=== PATIENT | male | born 1975 | race Caucasian/White ===

== ENCOUNTER 2017-06-03 17:26 | Emergency (ER) | payer OTHER ==
[~2017-06-03] VITALS: Ht 175.3 cm; Wt 118.2 kg
[~2017-06-03 17:26] MED LIST: INSLAN SQ; METF500T4 PO; SIMV20TA6 PO
[2017-06-03] MEDS ORDERED: ASPI81 PO (17:31)
[2017-06-03 17:43] LABS: GLUCOSE,POINT OF CARE 453 MG/DL (70-110)
[2017-06-03] MEDS ORDERED: KETOROLAC TROMETHAMINE 30 MG/ML VIAL IM ONE (20:00)
[2017-06-03] MEDS ORDERED: SODIUM CHLORIDE 0.9% 1,000 ML IV ONE (20:00)
[2017-06-03 20:08] VITALS: BP 121/99
== END 2017-06-03 20:21 | disposition home or self-care (01) ==
LOC: EMS 17:28
DX: S16.1XXA Strain of muscle, fascia and tendon at neck level, initial encounter (principal); E11.65 Type 2 diabetes mellitus with hyperglycemia; E78.00 Pure hypercholesterolemia, unspecified; I10 Essential (primary) hypertension; Z79.82 Long term (current) use of aspirin; Z79.4 Long term (current) use of insulin; V43.52XA Car driver injured in collision with other type car in traffic accident, initial encounter; Y93.89 Activity, other specified; Y92.412 Parkway as the place of occurrence of the external cause; Y99.8 Other external cause status
CPT/HCPCS: 70450; 72125; 82962; 96372; 99284; J1885

== ENCOUNTER 2017-08-23 07:13 | Emergency (ER) | payer OTHER ==
[~2017-08-23] VITALS: Ht 175.3 cm; Wt 118.2 kg
[~2017-08-23 07:13] MED LIST changes: +ASPI81 PO
[2017-08-23 07:22] LABS: GLUCOSE,POINT OF CARE 340 MG/DL (70-110)
[2017-08-23] MEDS ORDERED: HYDROCODONE/ACETAMINOPHEN 5-325 MG TABLET PO ONE (09:15)
[2017-08-23] MEDS ORDERED: MetFORMIN HCL 500 MG TABLET PO ONE (09:15)
[2017-08-23 09:30] VITALS: BP 146/81
== END 2017-08-23 09:35 | disposition home or self-care (01) ==
LOC: EMS 07:15
DX: L03.312 Cellulitis of back [any part except buttock and flank] (principal); E11.9 Type 2 diabetes mellitus without complications; I10 Essential (primary) hypertension; E78.00 Pure hypercholesterolemia, unspecified
CPT/HCPCS: 82962; 99283

== ENCOUNTER 2018-04-03 04:54 | Emergency (ER) | payer OTHER ==
[~2018-04-03] VITALS: Ht 175.3 cm; Wt 113.6 kg
[~2018-04-03 04:54] MED LIST changes: +METF-444 PO; -METF500T4 PO
[2018-04-03] MEDS ORDERED: HYDR-4061 PO (05:24)
[2018-04-03] MEDS ORDERED: LISI-661 PO (05:24)
[2018-04-03] MEDS ORDERED: IBUP-2070 PO (05:24)
[2018-04-03 05:55] LABS: APPEARANCE,URINE CLOUDY (CLEAR); BILIRUBIN,URINE NEGATIVE (NEGATIVE); GLUCOSE, URINE (UA) >=1000 mg/dL (NEGATIVE); KETONES,URINE NEGATIVE (NEGATIVE); LEUKOCYTE ESTERASE ,URINE NEGATIVE (NEGATIVE); NITRATE,URINE NEGATIVE (NEGATIVE); OCCULT BLOOD,URINE MODERATE (NEGATIVE); PROTEIN,URINE SEE CONFIRM (NEGATIVE)
[2018-04-03 06:05] LABS: SULFOSALICYLIC ACID,URINE 2+ (Negative)
[2018-04-03 06:08] LABS: BACTERIA,URINE None Seen /HPF (None Seen); SQUAMOUS EPITHELIAL CELL,UR Few /LPF (None Seen); WBC,URINE 0-2 /HPF (0-5); YEAST,URINE Few /HPF (None Seen)
[2018-04-03] MEDS ORDERED: BACLOFEN 10 MG TABLET PO ONE (06:45)
[2018-04-03] MEDS ORDERED: KETOROLAC TROMETHAMINE 60 MG/2 ML VIAL IM ONE (06:45)
[2018-04-03 06:49] LABS: GLUCOSE,POINT OF CARE 321 MG/DL (70-110)
[2018-04-03 06:51] LABS: BASOPHILS % (AUTO) 0.9 % (0.0-2.0); EOSINOPHILS % (AUTO) 0.5 % (1.0-6.0); HEMATOCRIT 39.3 % (41-53); LYMPHOCYTES # (AUTO) 2.2 K/uL (1.0-4.8); LYMPHOCYTES % (AUTO) 12.6 % (22.0-44.0); MEAN CORPUSCULAR HEMOGLOBIN 31.9 pg (26.0-34.0); MEAN CORPUSCULAR HGB CONC 35.7 G/dL (31.0-37.0); MEAN CORPUSCULAR VOLUME 90 fL (80-100); MONOCYTES # (AUTO) 1.6 K/uL (0.1-1.0); NEUTROPHILS # (AUTO) 13.6 K/uL (1.8-7.7); PLATELET COUNT (AUTO) 265 K/uL (150-450); RED BLOOD CELL COUNT(AUTO) 4.39 MIL/uL (4.50-5.90); RED CELL DISTRIBUTION WIDTH 11.5 % (11.5-14.5)
[2018-04-03 07:00] LABS: ANION GAP 7 mmol/L (8-16); CALCIUM, TOTAL 8.8 mg/dL (8.8-10.5); CARBON DIOXIDE 28 mmol/L (22-29); CHLORIDE 94 mmol/L (98-107); CREATININE 0.95 mg/dL (0.60-1.30); GLOMERULAR FILTR. RATE CALC > 60 mL/min (>60); GLUCOSE,RANDOM 323 mg/dL (70-110); POTASSIUM 4.4 mmol/L (3.5-5.1); SODIUM SERUM 129 mmol/L (136-145); UREA NITROGEN, BLOOD 21 mg/dL (7-18)
[2018-04-03 07:06] LABS: ALANINE AMINOTRANSFERASE 25 U/L (12-78); ALBUMIN 2.5 g/dL (3.4-5.0); ALKALINE PHOSPHATASE 107 U/L (46-116); ASPARTATE AMINOTRANSFERASE 22 U/L (15-37); BILIRUBIN,TOTAL 0.6 mg/dL (0.1-1.0)
[2018-04-03 07:09] LABS: D-DIMER 1.91 mg/L FEU (0.00-0.50); PROTHROMBIN TIME 10.5 SEC (9.4-11.6)
[2018-04-03 08:51] VITALS: BP 143/88
== END 2018-04-03 08:56 | disposition home or self-care (01) ==
LOC: EMS 04:55
DX: S86.812A Strain of other muscle(s) and tendon(s) at lower leg level, left leg, initial encounter (principal); E11.65 Type 2 diabetes mellitus with hyperglycemia; E87.1 Hypo-osmolality and hyponatremia; L03.116 Cellulitis of left lower limb; E78.00 Pure hypercholesterolemia, unspecified; I10 Essential (primary) hypertension; Z79.82 Long term (current) use of aspirin; Z79.4 Long term (current) use of insulin; Z79.899 Other long term (current) drug therapy; W19.XXXA Unspecified fall, initial encounter; Y93.89 Activity, other specified; Y92.89 Other specified places as the place of occurrence of the external cause; Y99.8 Other external cause status
CPT/HCPCS: 29530; 36415; 72170; 73552; 73590; 80053; 81001; 81002; 82962; 85025; 85379; 85610; 85730; 93971; 96372; 99285; J1885

== ENCOUNTER 2018-04-22 15:43 | Inpatient (IN) | payer OTHER ==
[~2018-04-22] VITALS: Ht 175.3 cm; Wt 126.2 kg
[~2018-04-22 15:43] MED LIST changes: +ACID1GRA PO; +INSU100V SQ; +LEVO250 PO; +LISI-661 PO; +OMEP20 PO; +VANC1.5P21 IVPB
[2018-04-22] MEDS ORDERED: SODIUM CHLORIDE 0.9% 1,000 ML IV ONE ×2 (17:04→17:15)
[2018-04-22] MEDS ORDERED: ACETAMINOPHEN 500 MG TABLET PO ONE (17:15)
[2018-04-22 17:32] LABS: BASOPHILS % (AUTO) 0.6 % (0.0-2.0); EOSINOPHILS % (AUTO) 0.4 % (1.0-6.0); HEMATOCRIT 26.9 % (41-53); HEMOGLOBIN 9.4 g/dL (13.5-17.5); LYMPHOCYTES # (AUTO) 1.2 K/uL (1.0-4.8); LYMPHOCYTES % (AUTO) 17.1 % (22.0-44.0); MEAN CORPUSCULAR HEMOGLOBIN 30.4 pg (26.0-34.0); MEAN CORPUSCULAR HGB CONC 34.9 G/dL (31.0-37.0); MEAN CORPUSCULAR VOLUME 87 fL (80-100); MONOCYTES # (AUTO) 0.5 K/uL (0.1-1.0); MONOCYTES % (AUTO) 6.7 % (2.0-9.0); NEUTROPHILS # (AUTO) 5.4 K/uL (1.8-7.7); NEUTROPHILS % (AUTO) 75.2 % (40.0-70.0); PLATELET COUNT (AUTO) 248 K/uL (150-450); RED BLOOD CELL COUNT(AUTO) 3.09 MIL/uL (4.50-5.90); RED CELL DISTRIBUTION WIDTH 12.6 % (11.5-14.5)
[2018-04-22 17:49] LABS: ALBUMIN 1.7 g/dL (3.4-5.0); BILIRUBIN,TOTAL 0.5 mg/dL (0.1-1.0); CALCIUM, TOTAL 7.5 mg/dL (8.8-10.5); CREATININE 1.56 mg/dL (0.60-1.30); POTASSIUM 3.7 mmol/L (3.5-5.1); TOTAL PROTEIN, SERUM 8.3 g/dL (6.4-8.2)
[2018-04-22] MEDS ORDERED: VANCOMYCIN HCL 1 GM/D5% WATER 200 ML IV ONE (19:30)
[2018-04-22] MEDS ORDERED: PIPERACILLIN/TAZO 3.375 GM/D5W 50 ML IV ONE (19:30)
[2018-04-22] MEDS ORDERED: 0.9% SODIUM CHLORIDE 10 ML SYRINGE IVP PRN (21:15)
[2018-04-22] MEDS ORDERED: ACETAMINOPHEN 325 MG TABLET PO PRN (21:15)
[2018-04-22] MEDS ORDERED: ONDANSETRON HCL 4 MG/2 ML VIAL IVP PRN ×2 (21:15→21:45)
[2018-04-22 21:33] LABS: GLUCOSE,POINT OF CARE 107 MG/DL (70-110)
[2018-04-22] MEDS ORDERED: MAGNESIUM HYDROXIDE SUSPENSION 30 ML UDCUP PO PRN (21:45)
[2018-04-22] MEDS ORDERED: OxyCODONE HCL/ACETAMINOPHEN 5-325 MG TABLET PO PRN (21:45)
[2018-04-22] MEDS ORDERED: ALBUTEROL SULFATE 2.5 MG/0.5 ML NEB SOLUTION NEB PRN (21:45)
[2018-04-22] MEDS ORDERED: SODIUM CHLORIDE 0.9% 1,000 ML IV SCH (22:00)
[2018-04-22] MEDS ORDERED: DEXTROSE 50%-WATER 25 GM/50 ML SYRINGE IVP PRN (22:00)
[2018-04-22 23:01] VITALS: BP 117/64
[2018-04-22] MEDS: HEPARIN SODIUM,PORCINE 5,000 UNITS/ML VIAL SQ SCH (23:50)
[2018-04-22] MEDS: ACETAMINOPHEN 325 MG TABLET PO PRN (23:50)
[2018-04-22] MEDS: SODIUM CHLORIDE 0.9% 1,000 ML IV SCH (23:50)
[2018-04-23 05:44] VITALS: BP 134/86
[2018-04-23 06:59] LABS: GLUCOMETER DEV NAME(LOC) 6N 1E; GLUCOSE,POINT OF CARE 111 MG/DL (70-110)
[2018-04-23 08:00] VITALS: BP 124/74
[2018-04-23] MEDS: HEPARIN SODIUM,PORCINE 5,000 UNITS/ML VIAL SQ SCH ×3 (08:05→23:27)
[2018-04-23] MEDS: SODIUM CHLORIDE 0.9% 1,000 ML IV SCH ×3 (08:05→23:33)
[2018-04-23] MEDS: PANTOPRAZOLE SODIUM 40 MG DR TABLET PO SCH (08:05)
[2018-04-23 10:09] LABS: CALCIUM, TOTAL 7.6 mg/dL (8.8-10.5); CREATININE 1.5 mg/dL (0.60-1.30); POTASSIUM 3.8 mmol/L (3.5-5.1)
[2018-04-23 11:25] LABS: BASOPHILS % (AUTO) 0.1 % (0.0-2.0); EOSINOPHILS % (AUTO) 1.6 % (1.0-6.0); HEMATOCRIT 29.9 % (41-53); HEMOGLOBIN 10.3 g/dL (13.5-17.5); LYMPHOCYTES # (AUTO) 0.4 K/uL (1.0-4.8); LYMPHOCYTES % (AUTO) 6.6 % (22.0-44.0); MEAN CORPUSCULAR HEMOGLOBIN 30.3 pg (26.0-34.0); MEAN CORPUSCULAR HGB CONC 34.5 G/dL (31.0-37.0); MEAN CORPUSCULAR VOLUME 88 fL (80-100); MONOCYTES # (AUTO) 0.3 K/uL (0.1-1.0); MONOCYTES % (AUTO) 5.5 % (2.0-9.0); NEUTROPHILS # (AUTO) 5.4 K/uL (1.8-7.7); PLATELET COUNT (AUTO) 225 K/uL (150-450); RED CELL DISTRIBUTION WIDTH 12.6 % (11.5-14.5)
[2018-04-23 11:27] VITALS: BP 137/80
[2018-04-23 11:28] LABS: NEUTROPHILS % (AUTO) 86.2 % (40.0-70.0)
[2018-04-23 11:49] LABS: GLUCOMETER DEV NAME(LOC) 6N 1E; GLUCOSE,POINT OF CARE 116 MG/DL (70-110)
[2018-04-23] MEDS: ACETAMINOPHEN 325 MG TABLET PO PRN ×3 (13:09→22:43)
[2018-04-23 15:37] VITALS: BP 122/79
[2018-04-23] MEDS: WATER IV SCH (16:36)
[2018-04-23] MEDS: CEFTAZIDIME PENTAHYDRATE IV SCH (16:36)
[2018-04-23] MEDS: DEXTROSE 5% IV SCH (16:36)
[2018-04-23] MEDS: MetroNIDAZOLE 500 MG/NACL 100 ML IV SCH ×2 (16:37→23:27)
[2018-04-23 18:04] LABS: GLUCOMETER DEV NAME(LOC) 6N 2D; GLUCOSE,POINT OF CARE 89 MG/DL (70-110)
[2018-04-23 19:06] LABS: APPEARANCE,URINE CLOUDY (CLEAR); BILIRUBIN,URINE NEGATIVE (NEGATIVE); GLUCOSE, URINE (UA) NEGATIVE (NEGATIVE); KETONES,URINE NEGATIVE (NEGATIVE); LEUKOCYTE ESTERASE ,URINE NEGATIVE (NEGATIVE); NITRATE,URINE NEGATIVE (NEGATIVE); OCCULT BLOOD,URINE SMALL (NEGATIVE); PROTEIN,URINE SEE CONFIRM (NEGATIVE); UROBILINOGEN,URINE 0.2 mg/dL (<=1.0)
[2018-04-23 19:28] LABS: BACTERIA,URINE None Seen /HPF (None Seen); RBC,URINE 0-2 /HPF (0-2); SQUAMOUS EPITHELIAL CELL,UR Few /LPF (None Seen); SULFOSALICYLIC ACID,URINE 1+ (Negative); WBC,URINE 0-2 /HPF (0-5)
[2018-04-23] MEDS: VANCOMYCIN HCL 1.5 GM in DEXTROSE 5%-WATER 250 ML IV SCH (19:29)
[2018-04-23 19:42] VITALS: BP 124/65
[2018-04-23] MEDS: INSULIN LISPRO 100 UNITS/ML SQ PRN (20:57)
[2018-04-23 22:14] LABS: GLUCOMETER DEV NAME(LOC) 6N 1E; GLUCOSE,POINT OF CARE 127 MG/DL (70-110)
[2018-04-23 23:25] VITALS: BP 122/42
[2018-04-24] MEDS: DEXTROSE 5% IV SCH ×3 (02:08→17:52)
[2018-04-24] MEDS: WATER IV SCH ×3 (02:08→17:52)
[2018-04-24] MEDS: CEFTAZIDIME PENTAHYDRATE IV SCH ×3 (02:08→17:52)
[2018-04-24 04:56] VITALS: BP 103/63
[2018-04-24 06:28] LABS: GLUCOMETER DEV NAME(LOC) 6N 2D; GLUCOSE,POINT OF CARE 115 MG/DL (70-110)
[2018-04-24 07:34] LABS: CALCIUM, TOTAL 7.3 mg/dL (8.8-10.5); CREATININE 1.38 mg/dL (0.60-1.30); POTASSIUM 3.6 mmol/L (3.5-5.1)
[2018-04-24 07:48] VITALS: BP 103/57
[2018-04-24] MEDS: MetroNIDAZOLE 500 MG/NACL 100 ML IV SCH ×2 (08:51→15:40)
[2018-04-24] MEDS: PANTOPRAZOLE SODIUM 40 MG DR TABLET PO SCH (08:53)
[2018-04-24] MEDS: MULTIVITAMINS WITH MINERALS, THERAPEUTIC TABLET PO SCH (08:53)
[2018-04-24] MEDS: HEPARIN SODIUM,PORCINE 5,000 UNITS/ML VIAL SQ SCH ×2 (08:53→15:40)
[2018-04-24] MEDS: VANCOMYCIN HCL 1.5 GM in DEXTROSE 5%-WATER 250 ML IV SCH ×2 (08:53→20:01)
[2018-04-24 11:54] VITALS: BP 99/65
[2018-04-24] MEDS: INSULIN LISPRO 100 UNITS/ML SQ PRN ×2 (12:22→20:12)
[2018-04-24 14:29] LABS: GLUCOMETER DEV NAME(LOC) 6N 1E; GLUCOSE,POINT OF CARE 148 MG/DL (70-110)
[2018-04-24] MEDS ORDERED: SODIUM CHLORIDE 0.9% 500 ML IV ONE (15:27)
[2018-04-24 15:30] VITALS: BP 130/73
[2018-04-24] MEDS: ACETAMINOPHEN 325 MG TABLET PO PRN (15:41)
[2018-04-24 18:54] LABS: GLUCOMETER DEV NAME(LOC) 6N 1E; GLUCOSE,POINT OF CARE 112 MG/DL (70-110)
[2018-04-24 18:54] LABS: GLUCOMETER DEV NAME(LOC) 6N 1E; GLUCOSE,POINT OF CARE 116 MG/DL (70-110)
[2018-04-24 19:37] VITALS: BP 105/68
[2018-04-24 23:39] VITALS: BP 148/74
[2018-04-25] MEDS: HEPARIN SODIUM,PORCINE 5,000 UNITS/ML VIAL SQ SCH ×4 (00:23→23:52)
[2018-04-25] MEDS: MetroNIDAZOLE 500 MG/NACL 100 ML IV SCH ×2 (00:23→10:22)
[2018-04-25] MEDS: DEXTROSE 5% IV SCH ×2 (00:24→10:21)
[2018-04-25] MEDS: CEFTAZIDIME PENTAHYDRATE IV SCH ×2 (00:24→10:21)
[2018-04-25] MEDS: WATER IV SCH ×2 (00:24→10:21)
[2018-04-25] MEDS: ACETAMINOPHEN 325 MG TABLET PO PRN ×3 (00:25→16:15)
[2018-04-25 01:58] LABS: GLUCOMETER DEV NAME(LOC) 6N 1E; GLUCOSE,POINT OF CARE 134 MG/DL (70-110)
[2018-04-25 05:40] VITALS: BP 135/65
[2018-04-25 07:31] LABS: CALCIUM, TOTAL 7.4 mg/dL (8.8-10.5); CREATININE 1.42 mg/dL (0.60-1.30); VANCOMYCIN,RANDOM 24.6 mcg/mL (25.0-50.0)
[2018-04-25 07:54] VITALS: BP 128/57
[2018-04-25 07:54] LABS: GLUCOMETER DEV NAME(LOC) 6N 1E; GLUCOSE,POINT OF CARE 105 MG/DL (70-110)
[2018-04-25] MEDS: VANCOMYCIN HCL 1.5 GM in DEXTROSE 5%-WATER 250 ML IV SCH (08:03)
[2018-04-25] MEDS: MULTIVITAMINS WITH MINERALS, THERAPEUTIC TABLET PO SCH (08:04)
[2018-04-25] MEDS: PANTOPRAZOLE SODIUM 40 MG DR TABLET PO SCH (08:04)
[2018-04-25 11:13] LABS: ABG A-A DIFF O2 316.6 mmHg (10-20.0); ABG BASE EXCESS 0.7 mmol/L (-2.0-3.0); ABG CARBOXYHEMOGLOBIN 1.4 % (0.0-1.5); ABG HCO3 25.6 mmol/L (22.0-26.0); ABG METHEMOGLOBIN 0.4 % (0.0-1.5); ABG OXYGEN CONTENT 15.6 mL/dL (15.0-23.0); ABG OXYHEMOGLOBIN 92.3 % (94.0-100.0); ABG PCO2 33 mmHg (35-45); ABG PH 7.482 (7.35-7.450); PO2, ARTERIAL BG 72.8 mmHg (88.0-96.0); SOURCE, BLOOD GAS ARTERIAL
[2018-04-25 11:14] LABS: O2 DEVICE,BLOOD GAS OXYMIZER (ROOM AIR); SITE, BLOOD GAS RT RADIAL
[2018-04-25 11:34] LABS: BASOPHILS % (AUTO) 0.3 % (0.0-2.0); HEMATOCRIT 25.7 % (41-53); HEMOGLOBIN 8.9 g/dL (13.5-17.5); LYMPHOCYTES # (AUTO) 0.6 K/uL (1.0-4.8); LYMPHOCYTES % (AUTO) 11.8 % (22.0-44.0); MEAN CORPUSCULAR HEMOGLOBIN 30.1 pg (26.0-34.0); MEAN CORPUSCULAR HGB CONC 34.7 G/dL (31.0-37.0); MEAN CORPUSCULAR VOLUME 87 fL (80-100); MONOCYTES # (AUTO) 0.4 K/uL (0.1-1.0); MONOCYTES % (AUTO) 7.2 % (2.0-9.0); NEUTROPHILS # (AUTO) 4.1 K/uL (1.8-7.7); NEUTROPHILS % (AUTO) 79.7 % (40.0-70.0); PLATELET COUNT (AUTO) 213 K/uL (150-450); RED BLOOD CELL COUNT(AUTO) 2.97 MIL/uL (4.50-5.90); RED CELL DISTRIBUTION WIDTH 12.7 % (11.5-14.5)
[2018-04-25 12:01] LABS: INR 1.1 (0.9-1.1); PROTHROMBIN TIME 11.6 SEC (9.4-11.6)
[2018-04-25 12:24] LABS: APPEARANCE,URINE CLOUDY (CLEAR); BILIRUBIN,URINE NEGATIVE (NEGATIVE); GLUCOSE, URINE (UA) NEGATIVE (NEGATIVE); KETONES,URINE NEGATIVE (NEGATIVE); LEUKOCYTE ESTERASE ,URINE NEGATIVE (NEGATIVE); NITRATE,URINE NEGATIVE (NEGATIVE); OCCULT BLOOD,URINE MODERATE (NEGATIVE); PROTEIN,URINE SEE CONFIRM (NEGATIVE); UROBILINOGEN,URINE 0.2 mg/dL (<=1.0)
[2018-04-25 12:34] LABS: SULFOSALICYLIC ACID,URINE 3+ (Negative)
[2018-04-25 12:36] LABS: CALCIUM, TOTAL 7.5 mg/dL (8.8-10.5); CREATININE 1.35 mg/dL (0.60-1.30); POTASSIUM 3.9 mmol/L (3.5-5.1)
[2018-04-25 12:36] LABS: BACTERIA,URINE Moderate /HPF (None Seen); WBC,URINE 0-2 /HPF (0-5)
[2018-04-25 12:42] LABS: SQUAMOUS EPITHELIAL CELL,UR None Seen /LPF (None Seen)
[2018-04-25] MEDS ORDERED: LIDOCAINE HCL/PF 1% 30 ML VIAL ONE (12:56)
[2018-04-25] MEDS ORDERED: PENTETATE DTPA TC99M/MCL ISOTOPE 1 EA INJ INJ ONE (13:00)
[2018-04-25] MEDS ORDERED: FentaNYL CITRATE-PF 100 MCG/2 ML VIAL ONE (13:26)
[2018-04-25] MEDS ORDERED: NALOXONE HCL 0.4 MG/ML VIAL ONE (13:27)
[2018-04-25] MEDS ORDERED: MIDAZOLAM HCL 2 MG/2 ML VIAL ONE (13:27)
[2018-04-25] MEDS ORDERED: FLUMAZENIL 0.1 MG/ML 5 ML VIAL IVP ONE (13:27)
[2018-04-25] MEDS ORDERED: MAA ALBUMIN AGGREGATED TC99M/UD<10MCL ISOTOPE 1 EA INJ INJ ONE (13:30)
[2018-04-25 15:42] VITALS: BP 118/69
[2018-04-25] MEDS: LEVOFLOXACIN 750 MG/D5% WATER 150 ML IV SCH (18:13)
[2018-04-25 20:14] VITALS: BP 114/58
[2018-04-25] MEDS: VANCOMYCIN HCL 1.25 GM in DEXTROSE 5%-WATER 250 ML IV SCH (20:21)
[2018-04-25] MEDS: SODIUM CHLORIDE 1 GM TABLET PO SCH (22:05)
[2018-04-25] MEDS: AZTREONAM 2 GM in DEXTROSE 5%-WATER 50 ML IV SCH (23:17)
[2018-04-26] VITALS: BP 116/77
[2018-04-26] MEDS: AZTREONAM 2 GM in DEXTROSE 5%-WATER 50 ML IV SCH ×3 (03:49→22:04)
[2018-04-26 04:38] VITALS: BP 107/60
[2018-04-26 06:06] LABS: ANION GAP 6 mmol/L (8-16); CALCIUM, TOTAL 7.6 mg/dL (8.8-10.5); CARBON DIOXIDE 25 mmol/L (22-29); CHLORIDE 90 mmol/L (98-107); CREATININE 1.26 mg/dL (0.60-1.30); GLOMERULAR FILTR. RATE CALC > 60 mL/min (>60); GLUCOSE,RANDOM 120 mg/dL (70-110); POTASSIUM 3.9 mmol/L (3.5-5.1); THYROID STIMULATING HORMONE 1.61 uIU/mL (0.36-3.74); UREA NITROGEN, BLOOD 28 mg/dL (7-18)
[2018-04-26 06:12] LABS: SODIUM SERUM 121 mmol/L (136-145)
[2018-04-26 08:04] LABS: GLUCOMETER DEV NAME(LOC) 5S 1M; GLUCOSE,POINT OF CARE 124 MG/DL (70-110)
[2018-04-26 08:04] LABS: GLUCOMETER DEV NAME(LOC) 5S 1M; GLUCOSE,POINT OF CARE 113 MG/DL (70-110)
[2018-04-26 08:04] LABS: GLUCOMETER DEV NAME(LOC) 5S 2Q; GLUCOSE,POINT OF CARE 118 MG/DL (70-110)
[2018-04-26] MEDS: PANTOPRAZOLE SODIUM 40 MG DR TABLET PO SCH (08:58)
[2018-04-26] MEDS: SODIUM CHLORIDE 1 GM TABLET PO SCH (08:58)
[2018-04-26] MEDS: VANCOMYCIN HCL 1.25 GM in DEXTROSE 5%-WATER 250 ML IV SCH ×2 (08:59→22:09)
[2018-04-26] MEDS: MULTIVITAMINS WITH MINERALS, THERAPEUTIC TABLET PO SCH (08:59)
[2018-04-26] MEDS: HEPARIN SODIUM,PORCINE 5,000 UNITS/ML VIAL SQ SCH ×3 (08:59→23:46)
[2018-04-26 09:20] VITALS: BP 124/65
[2018-04-26 09:27] LABS: CREATININE,URINE RANDOM 89.3 mg/dL (30.0-125.0)
[2018-04-26] MEDS: INSULIN LISPRO 100 UNITS/ML SQ PRN ×2 (12:01→17:06)
[2018-04-26 12:12] VITALS: BP 111/63
[2018-04-26] MEDS: SODIUM CHLORIDE 3% 500 ML IV SCH (13:34)
[2018-04-26 14:21] LABS: C.DIFF GDH ANTIGEN, Stool Negative (Negative); C.DIFF TOXINS A&B, Stool Negative (Negative)
[2018-04-26] MEDS: ACETAMINOPHEN 325 MG TABLET PO PRN ×2 (14:48→21:37)
[2018-04-26 16:19] VITALS: BP 127/68
[2018-04-26 19:19] VITALS: BP 105/60
[2018-04-26 19:34] LABS: CALCIUM, TOTAL 7.4 mg/dL (8.8-10.5); CREATININE 1.33 mg/dL (0.60-1.30); POTASSIUM 3.8 mmol/L (3.5-5.1)
[2018-04-26] MEDS: LEVOFLOXACIN 750 MG/D5% WATER 150 ML IV SCH (19:51)
[2018-04-26 20:33] LABS: GLUCOMETER DEV NAME(LOC) 5S 2Q; GLUCOSE,POINT OF CARE 134 MG/DL (70-110)
[2018-04-26 20:33] LABS: GLUCOMETER DEV NAME(LOC) 5S 2Q; GLUCOSE,POINT OF CARE 140 MG/DL (70-110)
[2018-04-27] VITALS (7 sets, daily range): BP systolic 113–144; BP diastolic 56–89
[2018-04-27] MEDS: ACETAMINOPHEN 325 MG TABLET PO PRN ×3 (02:45→15:07)
[2018-04-27] MEDS: SODIUM CHLORIDE 3% 500 ML IV SCH (04:29)
[2018-04-27] MEDS: AZTREONAM 2 GM in DEXTROSE 5%-WATER 50 ML IV SCH (04:29)
[2018-04-27 05:09] LABS: APPEARANCE,URINE CLOUDY (CLEAR); BILIRUBIN,URINE NEGATIVE (NEGATIVE); GLUCOSE, URINE (UA) NEGATIVE (NEGATIVE); KETONES,URINE NEGATIVE (NEGATIVE); LEUKOCYTE ESTERASE ,URINE NEGATIVE (NEGATIVE); NITRATE,URINE NEGATIVE (NEGATIVE); OCCULT BLOOD,URINE SMALL (NEGATIVE); PROTEIN,URINE SEE CONFIRM (NEGATIVE); UROBILINOGEN,URINE 0.2 mg/dL (<=1.0)
[2018-04-27 05:15] LABS: COARSE GRANULAR CASTS,URINE 0-2 /LPF (None Seen); SULFOSALICYLIC ACID,URINE 2+ (Negative)
[2018-04-27 05:16] LABS: AMORPHOUS SEDIMENT,UR Few /LPF (None Seen); BACTERIA,URINE Many /HPF (None Seen); RBC,URINE 0-2 /HPF (0-2); WBC,URINE 0-2 /HPF (0-5)
[2018-04-27 06:04] LABS: GLUCOMETER DEV NAME(LOC) 5S 1M; GLUCOSE,POINT OF CARE 116 MG/DL (70-110)
[2018-04-27 06:49] LABS: GLUCOMETER DEV NAME(LOC) 5S 2Q; GLUCOSE,POINT OF CARE 107 MG/DL (70-110)
[2018-04-27 06:52] LABS: BASOPHILS % (AUTO) 0.5 % (0.0-2.0); EOSINOPHILS % (AUTO) 3.1 % (1.0-6.0); HEMATOCRIT 26.1 % (41-53); HEMOGLOBIN 9.3 g/dL (13.5-17.5); LYMPHOCYTES # (AUTO) 0.4 K/uL (1.0-4.8); LYMPHOCYTES % (AUTO) 8.3 % (22.0-44.0); MEAN CORPUSCULAR HEMOGLOBIN 30.6 pg (26.0-34.0); MEAN CORPUSCULAR HGB CONC 35.6 G/dL (31.0-37.0); MEAN CORPUSCULAR VOLUME 86 fL (80-100); MONOCYTES # (AUTO) 0.4 K/uL (0.1-1.0); MONOCYTES % (AUTO) 7.2 % (2.0-9.0); NEUTROPHILS # (AUTO) 4.1 K/uL (1.8-7.7); NEUTROPHILS % (AUTO) 80.9 % (40.0-70.0); PLATELET COUNT (AUTO) 228 K/uL (150-450); RED BLOOD CELL COUNT(AUTO) 3.03 MIL/uL (4.50-5.90)
[2018-04-27 07:04] LABS: ANION GAP 8 mmol/L (8-16); CALCIUM, TOTAL 7.6 mg/dL (8.8-10.5); CARBON DIOXIDE 23 mmol/L (22-29); CHLORIDE 94 mmol/L (98-107); CREATININE 1.19 mg/dL (0.60-1.30); GLOMERULAR FILTR. RATE CALC > 60 mL/min (>60); GLUCOSE,RANDOM 120 mg/dL (70-110); POTASSIUM 4.2 mmol/L (3.5-5.1); SODIUM SERUM 125 mmol/L (136-145); UREA NITROGEN, BLOOD 30 mg/dL (7-18)
[2018-04-27] MEDS: MULTIVITAMINS WITH MINERALS, THERAPEUTIC TABLET PO SCH (08:21)
[2018-04-27] MEDS: PANTOPRAZOLE SODIUM 40 MG DR TABLET PO SCH (08:21)
[2018-04-27] MEDS: VANCOMYCIN HCL 1.25 GM in DEXTROSE 5%-WATER 250 ML IV SCH ×2 (08:21→22:41)
[2018-04-27] MEDS: HEPARIN SODIUM,PORCINE 5,000 UNITS/ML VIAL SQ SCH ×2 (08:22→15:07)
[2018-04-27] MEDS ORDERED: FUROSEMIDE 20 MG TABLET PO ONE (10:15)
[2018-04-27] MEDS: SODIUM CHLORIDE 1 GM TABLET PO SCH ×3 (12:49→21:00)
[2018-04-27 16:39] LABS: GLUCOMETER DEV NAME(LOC) 5S 1M; GLUCOSE,POINT OF CARE 129 MG/DL (70-110)
[2018-04-27 17:30] LABS: ABG A-A DIFF O2 209.7 mmHg (10-20.0); ABG BASE EXCESS 1.2 mmol/L (-2.0-3.0); ABG CARBOXYHEMOGLOBIN 0.5 % (0.0-1.5); ABG HCO3 25.8 mmol/L (22.0-26.0); ABG METHEMOGLOBIN 0.3 % (0.0-1.5); ABG OXYGEN CONTENT 15.4 mL/dL (15.0-23.0); ABG OXYGEN SATURATION 92.6 % (95.0-98.0); ABG OXYHEMOGLOBIN 91.9 % (94.0-100.0); ABG PCO2 34 mmHg (35-45); ABG PH 7.476 (7.35-7.450); ABG TOTAL HEMOGLOBIN 11.9 G/dL (12.0-18.0); PO2, ARTERIAL BG 64.8 mmHg (88.0-96.0); SOURCE, BLOOD GAS ARTERIAL; TEMPERATURE, FAHRENHEIT, BG 98.6 FAHREN (96.0-98.6)
[2018-04-27 17:31] LABS: O2 DEVICE,BLOOD GAS CANNULA (ROOM AIR); SITE, BLOOD GAS RT RADIAL
[2018-04-27] MEDS ORDERED: SODIUM CL IRRIG SOLN BAG 3,000 ML IRRIG ONE (18:30)
[2018-04-27] MEDS ORDERED: SODIUM CHLORIDE 0.9% 1,000 ML IV ONE (19:00)
[2018-04-27] MEDS ORDERED: GUM MASTIC/STORAX/MSAL/ALCOHOL LIQUID 0.67 ML VIAL TP ONE (21:00)
[2018-04-27] MEDS ORDERED: MEPERIDINE HCL/PF 25 MG/0.5 ML AMP IVP PRN (21:00)
[2018-04-27] MEDS ORDERED: FentaNYL CITRATE-PF 100 MCG/2 ML VIAL IVP PRN (21:00)
[2018-04-27] MEDS ORDERED: HYDROmorphone 2 MG/ML SYRINGE IVP PRN ×2 (21:00)
[2018-04-27] MEDS ORDERED: OxyCODONE HCL/ACETAMINOPHEN 10-325 MG TABLET PO PRN (21:00)
[2018-04-27 21:53] LABS: GLUCOMETER DEV NAME(LOC) PACU 2; GLUCOSE,POINT OF CARE 107 MG/DL (70-110)
[2018-04-27] MEDS ORDERED: DOCUSATE SODIUM 250 MG CAPSULE PO PRN (22:00)
[2018-04-28] MEDS: ACETAMINOPHEN 1000 MG/ISO-OSM 100 ML IV SCH ×4 (02:57→20:57)
[2018-04-28 05:00] VITALS: BP 107/62
[2018-04-28] MEDS ORDERED: MIDAZOLAM HCL 2 MG/2 ML VIAL IVP ONE (05:42)
[2018-04-28] MEDS ORDERED: EPHEDrine SULFATE 50 MG/ML VIAL IM ONE (05:42)
[2018-04-28] MEDS ORDERED: LIDOCAINE HCL/PF 2% 5 ML VIAL IM ONE (05:42)
[2018-04-28] MEDS ORDERED: ONDANSETRON HCL 4 MG/2 ML VIAL IVP ONE (05:42)
[2018-04-28] MEDS ORDERED: PROPOFOL 1% 20 ML VIAL IVP ONE (05:42)
[2018-04-28 07:12] LABS: ANION GAP 7 mmol/L (8-16); CALCIUM, TOTAL 7.4 mg/dL (8.8-10.5); CARBON DIOXIDE 24 mmol/L (22-29); CHLORIDE 96 mmol/L (98-107); CREATININE 1.29 mg/dL (0.60-1.30); GLOMERULAR FILTR. RATE CALC > 60 mL/min (>60); GLUCOSE,RANDOM 129 mg/dL (70-110); POTASSIUM 3.9 mmol/L (3.5-5.1); SODIUM SERUM 127 mmol/L (136-145); UREA NITROGEN, BLOOD 29 mg/dL (7-18); VANCOMYCIN,RANDOM 26.5 mcg/mL (25.0-50.0)
[2018-04-28 07:49] VITALS: BP 124/56
[2018-04-28] MEDS: HEPARIN SODIUM,PORCINE 5,000 UNITS/ML VIAL SQ SCH ×3 (08:47→16:29)
[2018-04-28] MEDS: MULTIVITAMINS WITH MINERALS, THERAPEUTIC TABLET PO SCH (08:47)
[2018-04-28] MEDS: SODIUM CHLORIDE 1 GM TABLET PO SCH ×3 (08:47→20:57)
[2018-04-28] MEDS: PANTOPRAZOLE SODIUM 40 MG DR TABLET PO SCH (08:47)
[2018-04-28] MEDS: VANCOMYCIN HCL 1.25 GM in DEXTROSE 5%-WATER 250 ML IV SCH ×2 (08:47→20:57)
[2018-04-28] MEDS ORDERED: SODIUM CHLORIDE 0.9% 250 ML IV ONE ×2 (08:56→09:13)
[2018-04-28 11:57] VITALS: BP 104/54
[2018-04-28] MEDS: INSULIN LISPRO 100 UNITS/ML SQ PRN ×2 (12:38→18:13)
[2018-04-28 15:47] VITALS: BP 120/51
[2018-04-28 19:34] VITALS: BP 138/72
[2018-04-29 00:03] VITALS: BP 123/65
[2018-04-29] MEDS: HEPARIN SODIUM,PORCINE 5,000 UNITS/ML VIAL SQ SCH ×3 (01:00→15:23)
[2018-04-29 04:37] VITALS: BP 141/65
[2018-04-29] MEDS ORDERED: KETAMINE HCL 50 MG/ML 10 ML VIAL IVP ONE (05:21)
[2018-04-29 07:43] VITALS: BP 117/59
[2018-04-29 08:02] LABS: ANION GAP 12 mmol/L (8-16); CALCIUM, TOTAL 7.4 mg/dL (8.8-10.5); CARBON DIOXIDE 19 mmol/L (22-29); CHLORIDE 97 mmol/L (98-107); CREATININE 1.15 mg/dL (0.60-1.30); GLOMERULAR FILTR. RATE CALC > 60 mL/min (>60); GLUCOSE,RANDOM 152 mg/dL (70-110); POTASSIUM 4.1 mmol/L (3.5-5.1); SODIUM SERUM 128 mmol/L (136-145); UREA NITROGEN, BLOOD 28 mg/dL (7-18)
[2018-04-29] MEDS: VANCOMYCIN HCL 1.25 GM in DEXTROSE 5%-WATER 250 ML IV SCH ×2 (08:39→18:54)
[2018-04-29] MEDS: PANTOPRAZOLE SODIUM 40 MG DR TABLET PO SCH (09:19)
[2018-04-29] MEDS: HYDROCODONE/ACETAMINOPHEN 5-325 MG TABLET PO PRN ×3 (09:21→21:08)
[2018-04-29] MEDS: MULTIVITAMINS WITH MINERALS, THERAPEUTIC TABLET PO SCH (09:23)
[2018-04-29] MEDS: SODIUM CHLORIDE 1 GM TABLET PO SCH ×3 (09:23→21:08)
[2018-04-29 11:24] VITALS: BP 139/80
[2018-04-29] MEDS: INSULIN LISPRO 100 UNITS/ML SQ PRN ×3 (12:07→21:15)
[2018-04-29 15:18] VITALS: BP 112/71
[2018-04-29] MEDS: ACETAMINOPHEN 325 MG TABLET PO PRN (15:23)
[2018-04-29 19:47] VITALS: BP 117/66
[2018-04-30] VITALS (7 sets, daily range): BP systolic 120–140; BP diastolic 48–87
[2018-04-30] MEDS: HEPARIN SODIUM,PORCINE 5,000 UNITS/ML VIAL SQ SCH ×4 (00:16→23:28)
[2018-04-30] MEDS: VANCOMYCIN HCL 1.25 GM in DEXTROSE 5%-WATER 250 ML IV SCH ×2 (05:34→20:30)
[2018-04-30 07:13] LABS: ANION GAP 6 mmol/L (8-16); CALCIUM, TOTAL 7.5 mg/dL (8.8-10.5); CARBON DIOXIDE 24 mmol/L (22-29); CHLORIDE 98 mmol/L (98-107); CREATININE 1.03 mg/dL (0.60-1.30); GLOMERULAR FILTR. RATE CALC > 60 mL/min (>60); GLUCOSE,RANDOM 140 mg/dL (70-110); PHOSPHORUS 2.8 mg/dL (2.5-4.9); SODIUM SERUM 128 mmol/L (136-145); UREA NITROGEN, BLOOD 28 mg/dL (7-18)
[2018-04-30] MEDS: PANTOPRAZOLE SODIUM 40 MG DR TABLET PO SCH (08:47)
[2018-04-30] MEDS: MULTIVITAMINS WITH MINERALS, THERAPEUTIC TABLET PO SCH (08:47)
[2018-04-30] MEDS: HYDROCODONE/ACETAMINOPHEN 5-325 MG TABLET PO PRN (08:47)
[2018-04-30] MEDS: SODIUM CHLORIDE 1 GM TABLET PO SCH ×3 (08:48→20:29)
[2018-04-30] MEDS ORDERED: SODIUM CHLORIDE 0.9% 250 ML IV ONE (08:54)
[2018-04-30] MEDS: INSULIN LISPRO 100 UNITS/ML SQ PRN ×3 (11:52→21:01)
[2018-04-30] MEDS: ACETAMINOPHEN 325 MG TABLET PO PRN ×2 (18:32→23:27)
[2018-04-30 19:53] LABS: GLUCOMETER DEV NAME(LOC) 5S 2Q; GLUCOSE,POINT OF CARE 155 MG/DL (70-110)
[2018-04-30 19:53] LABS: GLUCOMETER DEV NAME(LOC) 5S 2Q; GLUCOSE,POINT OF CARE 131 MG/DL (70-110)
[2018-04-30 19:53] LABS: GLUCOMETER DEV NAME(LOC) 5S 2Q; GLUCOSE,POINT OF CARE 149 MG/DL (70-110)
[2018-04-30 19:53] LABS: GLUCOMETER DEV NAME(LOC) 5S 2Q; GLUCOSE,POINT OF CARE 158 MG/DL (70-110)
[2018-04-30 19:53] LABS: GLUCOMETER DEV NAME(LOC) 5S 2Q; GLUCOSE,POINT OF CARE 113 MG/DL (70-110)
[2018-04-30 19:53] LABS: GLUCOMETER DEV NAME(LOC) 5S 2Q; GLUCOSE,POINT OF CARE 145 MG/DL (70-110)
[2018-04-30 19:53] LABS: GLUCOMETER DEV NAME(LOC) 5S 2Q; GLUCOSE,POINT OF CARE 120 MG/DL (70-110)
[2018-04-30 22:08] LABS: GLUCOMETER DEV NAME(LOC) 5S 2Q; GLUCOSE,POINT OF CARE 175 MG/DL (70-110)
[2018-05-01 03:52] VITALS: BP 139/82
[2018-05-01 05:48] LABS: BASOPHILS % (AUTO) 0.5 % (0.0-2.0); EOSINOPHILS % (AUTO) 1.1 % (1.0-6.0); HEMOGLOBIN 8.3 g/dL (13.5-17.5); LYMPHOCYTES # (AUTO) 0.6 K/uL (1.0-4.8); LYMPHOCYTES % (AUTO) 10.4 % (22.0-44.0); MEAN CORPUSCULAR HEMOGLOBIN 30.3 pg (26.0-34.0); MEAN CORPUSCULAR HGB CONC 34.8 G/dL (31.0-37.0); MEAN CORPUSCULAR VOLUME 87 fL (80-100); MONOCYTES # (AUTO) 0.6 K/uL (0.1-1.0); MONOCYTES % (AUTO) 11.9 % (2.0-9.0); NEUTROPHILS % (AUTO) 76.1 % (40.0-70.0); PLATELET COUNT (AUTO) 219 K/uL (150-450); RED BLOOD CELL COUNT(AUTO) 2.75 MIL/uL (4.50-5.90); RED CELL DISTRIBUTION WIDTH 13.6 % (11.5-14.5)
[2018-05-01 06:07] LABS: ANION GAP 6 mmol/L (8-16); CALCIUM, TOTAL 7.6 mg/dL (8.8-10.5); CARBON DIOXIDE 25 mmol/L (22-29); CHLORIDE 100 mmol/L (98-107); CREATININE 0.97 mg/dL (0.60-1.30); GLOMERULAR FILTR. RATE CALC > 60 mL/min (>60); GLUCOSE,RANDOM 143 mg/dL (70-110); PHOSPHORUS 3.1 mg/dL (2.5-4.9); POTASSIUM 4.1 mmol/L (3.5-5.1); SODIUM SERUM 131 mmol/L (136-145); UREA NITROGEN, BLOOD 23 mg/dL (7-18); VANCOMYCIN,RANDOM 24.2 mcg/mL (25.0-50.0)
[2018-05-01] MEDS: INSULIN LISPRO 100 UNITS/ML SQ PRN ×4 (06:18→22:08)
[2018-05-01 07:45] VITALS: BP 136/80
[2018-05-01] MEDS: PANTOPRAZOLE SODIUM 40 MG DR TABLET PO SCH (08:32)
[2018-05-01] MEDS: HEPARIN SODIUM,PORCINE 5,000 UNITS/ML VIAL SQ SCH ×3 (08:32→23:39)
[2018-05-01] MEDS: SODIUM CHLORIDE 1 GM TABLET PO SCH ×3 (08:32→22:07)
[2018-05-01] MEDS: VANCOMYCIN HCL 1.25 GM in DEXTROSE 5%-WATER 250 ML IV SCH ×2 (08:32→19:47)
[2018-05-01] MEDS: MULTIVITAMINS WITH MINERALS, THERAPEUTIC TABLET PO SCH (08:32)
[2018-05-01] MEDS: ACETAMINOPHEN 325 MG TABLET PO PRN ×2 (11:34→19:47)
[2018-05-01 15:11] VITALS: BP 130/78
[2018-05-01] MEDS ORDERED: SODIUM CHLORIDE 0.9% 500 ML IV ONE (15:53)
[2018-05-01 15:54] VITALS: BP 139/86
[2018-05-01 17:59] LABS: GLUCOMETER DEV NAME(LOC) 6N 1E; GLUCOSE,POINT OF CARE 143 MG/DL (70-110)
[2018-05-01] MEDS: AMPICILLIN SODIUM/SULBACTAM NA 3 GM in SODIUM CHLORIDE 0.9% 100 ML IV SCH ×2 (18:23→23:39)
[2018-05-01 19:42] VITALS: BP 149/79
[2018-05-01 23:01] VITALS: BP 135/76
[2018-05-02 00:48] LABS: GLUCOMETER DEV NAME(LOC) 6N 2D; GLUCOSE,POINT OF CARE 147 MG/DL (70-110)
[2018-05-02] MEDS: AMPICILLIN SODIUM/SULBACTAM NA 3 GM in SODIUM CHLORIDE 0.9% 100 ML IV SCH ×4 (05:35→23:18)
[2018-05-02] MEDS: VANCOMYCIN HCL 1.25 GM in DEXTROSE 5%-WATER 250 ML IV SCH ×2 (06:20→19:57)
[2018-05-02] MEDS: INSULIN LISPRO 100 UNITS/ML SQ PRN (06:20)
[2018-05-02 06:34] LABS: ANION GAP 6 mmol/L (8-16); CALCIUM, TOTAL 7.8 mg/dL (8.8-10.5); CARBON DIOXIDE 26 mmol/L (22-29); CHLORIDE 101 mmol/L (98-107); CREATININE 0.92 mg/dL (0.60-1.30); GLOMERULAR FILTR. RATE CALC > 60 mL/min (>60); GLUCOSE,RANDOM 121 mg/dL (70-110); POTASSIUM 4.2 mmol/L (3.5-5.1); SODIUM SERUM 133 mmol/L (136-145); UREA NITROGEN, BLOOD 18 mg/dL (7-18)
[2018-05-02 07:26] VITALS: BP 134/65
[2018-05-02 07:29] LABS: GLUCOMETER DEV NAME(LOC) 6N 2D; GLUCOSE,POINT OF CARE 122 MG/DL (70-110)
[2018-05-02] MEDS: ASCORBIC ACID 500 MG TABLET PO SCH (08:09)
[2018-05-02] MEDS: HEPARIN SODIUM,PORCINE 5,000 UNITS/ML VIAL SQ SCH ×3 (08:09→23:17)
[2018-05-02] MEDS: PANTOPRAZOLE SODIUM 40 MG DR TABLET PO SCH (08:10)
[2018-05-02] MEDS: SODIUM CHLORIDE 1 GM TABLET PO SCH ×3 (08:10→19:57)
[2018-05-02] MEDS: MULTIVITAMINS WITH MINERALS, THERAPEUTIC TABLET PO SCH (08:10)
[2018-05-02 11:28] LABS: GLUCOMETER DEV NAME(LOC) 6N 2D; GLUCOSE,POINT OF CARE 136 MG/DL (70-110)
[2018-05-02 12:00] VITALS: BP 129/79
[2018-05-02 15:39] VITALS: BP 136/82
[2018-05-02 17:53] LABS: GLUCOMETER DEV NAME(LOC) 6N 2D; GLUCOSE,POINT OF CARE 123 MG/DL (70-110)
[2018-05-02 19:20] VITALS: BP 123/68
[2018-05-02 20:43] LABS: GLUCOMETER DEV NAME(LOC) 6N 1E; GLUCOSE,POINT OF CARE 136 MG/DL (70-110)
[2018-05-02 23:29] VITALS: BP 115/74
[2018-05-03] MEDS: ACETAMINOPHEN 325 MG TABLET PO PRN (03:09)
[2018-05-03 04:20] VITALS: BP 136/74
[2018-05-03] MEDS: AMPICILLIN SODIUM/SULBACTAM NA 3 GM in SODIUM CHLORIDE 0.9% 100 ML IV SCH ×3 (04:53→16:58)
[2018-05-03 05:34] LABS: GLUCOMETER DEV NAME(LOC) 6N 2D; GLUCOSE,POINT OF CARE 123 MG/DL (70-110)
[2018-05-03] MEDS: VANCOMYCIN HCL 1.25 GM in DEXTROSE 5%-WATER 250 ML IV SCH (06:20)
[2018-05-03 07:00] LABS: ANION GAP 4 mmol/L (8-16); CALCIUM, TOTAL 7.6 mg/dL (8.8-10.5); CARBON DIOXIDE 27 mmol/L (22-29); CHLORIDE 101 mmol/L (98-107); CREATININE 0.92 mg/dL (0.60-1.30); GLOMERULAR FILTR. RATE CALC > 60 mL/min (>60); GLUCOSE,RANDOM 128 mg/dL (70-110); SODIUM SERUM 132 mmol/L (136-145); UREA NITROGEN, BLOOD 16 mg/dL (7-18); VANCOMYCIN,RANDOM 20.8 mcg/mL (25.0-50.0)
[2018-05-03 07:12] VITALS: BP 129/64
[2018-05-03 07:54] LABS: GLUCOMETER DEV NAME(LOC) 5S 1M; GLUCOSE,POINT OF CARE 133 MG/DL (70-110)
[2018-05-03 07:54] LABS: GLUCOMETER DEV NAME(LOC) 5S 1M; GLUCOSE,POINT OF CARE 146 MG/DL (70-110)
[2018-05-03 07:54] LABS: GLUCOMETER DEV NAME(LOC) 5S 1M; GLUCOSE,POINT OF CARE 116 MG/DL (70-110)
[2018-05-03 07:54] LABS: GLUCOMETER DEV NAME(LOC) 5S 1M; GLUCOSE,POINT OF CARE 158 MG/DL (70-110)
[2018-05-03 07:54] LABS: GLUCOMETER DEV NAME(LOC) 5S 1M; GLUCOSE,POINT OF CARE 147 MG/DL (70-110)
[2018-05-03 07:54] LABS: GLUCOMETER DEV NAME(LOC) 5S 1M; GLUCOSE,POINT OF CARE 119 MG/DL (70-110)
[2018-05-03 07:54] LABS: GLUCOMETER DEV NAME(LOC) 5S 1M; GLUCOSE,POINT OF CARE 145 MG/DL (70-110)
[2018-05-03] MEDS: HEPARIN SODIUM,PORCINE 5,000 UNITS/ML VIAL SQ SCH ×2 (08:01→15:59)
[2018-05-03] MEDS: PANTOPRAZOLE SODIUM 40 MG DR TABLET PO SCH (08:01)
[2018-05-03] MEDS: MULTIVITAMINS WITH MINERALS, THERAPEUTIC TABLET PO SCH (08:01)
[2018-05-03] MEDS: ASCORBIC ACID 500 MG TABLET PO SCH (08:01)
[2018-05-03] MEDS: SODIUM CHLORIDE 1 GM TABLET PO SCH ×2 (08:01→15:59)
[2018-05-03 11:21] VITALS: BP 116/79
[2018-05-03] MEDS: INSULIN LISPRO 100 UNITS/ML SQ PRN ×2 (13:00→17:49)
[2018-05-03 15:23] VITALS: BP 134/83
[2018-05-03 19:39] LABS: GLUCOMETER DEV NAME(LOC) 6N 1E; GLUCOSE,POINT OF CARE 176 MG/DL (70-110)
[2018-05-03 19:39] LABS: GLUCOMETER DEV NAME(LOC) 6N 2D; GLUCOSE,POINT OF CARE 134 MG/DL (70-110)
== END 2018-05-03 18:55 | DRG 710 ==
LOC: EMS 15:44 → 6N 21:27 → 5S 04-25 10:50 → 6N 05-01 15:35
PROVIDERS: ADMIT Internal Medicine; ATTEND Internal Medicine
PROC: 0J9P3ZX Drainage of Left Lower Leg Subcutaneous Tissue and Fascia, Percutaneous Approach, Diagnostic (ICD-10-PCS; 2018-04-25)
PROC: 0JCP0ZZ Extirpation of Matter from Left Lower Leg Subcutaneous Tissue and Fascia, Open Approach (ICD-10-PCS; 2018-04-27)
PROC: 0KBT0ZZ Excision of Left Lower Leg Muscle, Open Approach (ICD-10-PCS; principal; 2018-04-27 20:00)
DX: A41.9 Sepsis, unspecified organism (principal); J96.01 Acute respiratory failure with hypoxia; N17.0 Acute kidney failure with tubular necrosis; E43 Unspecified severe protein-calorie malnutrition; G92 Toxic encephalopathy; E87.1 Hypo-osmolality and hyponatremia; L02.416 Cutaneous abscess of left lower limb; N17.9 Acute kidney failure, unspecified; S72.435A Nondisplaced fracture of medial condyle of left femur, initial encounter for closed fracture; D63.8 Anemia in other chronic diseases classified elsewhere; E11.65 Type 2 diabetes mellitus with hyperglycemia; E66.01 Morbid (severe) obesity due to excess calories; E88.09 Other disorders of plasma-protein metabolism, not elsewhere classified; X58.XXXA Exposure to other specified factors, initial encounter; R62.50 Unspecified lack of expected normal physiological development in childhood; E78.00 Pure hypercholesterolemia, unspecified; E78.5 Hyperlipidemia, unspecified; I10 Essential (primary) hypertension; L03.116 Cellulitis of left lower limb; Z68.41 Body mass index [BMI] 40.0-44.9, adult; Z74.01 Bed confinement status; Z79.4 Long term (current) use of insulin; Z82.49 Family history of ischemic heart disease and other diseases of the circulatory system; Z83.3 Family history of diabetes mellitus; Z79.82 Long term (current) use of aspirin; Z79.899 Other long term (current) drug therapy; Y93.89 Activity, other specified; Y92.89 Other specified places as the place of occurrence of the external cause; Y99.8 Other external cause status
CPT/HCPCS: 10022; 71250; 73700; 74176; 76770; 78582; 82043; 82436; 82570; 82805; 83605; 83735; 83930; 83935; 84100; 84133; 84145; 84300; 84443; 84540; 87015; 87040; 87070; 87081; 87086; 87205; 87206; 87324; 87449; 93005; 93306; 93925; 93971; 94660; 96365; 96366; 96368; 97110; 97163; 97530; 99285; A9539; A9540; G0238; J0131; J0295; J0713; J1170; J1644; J1956; J2250; J2310; J2405; J2543; J2704; J3010; J3370; J3490; J7030; J7040; J7050; J7060

== ENCOUNTER 2018-10-22 18:19 | Emergency (ER) | payer OTHER ==
[~2018-10-22] VITALS: Ht 175.3 cm; Wt 113.6 kg
[2018-10-22 18:44] LABS: GLUCOSE,POINT OF CARE 295 MG/DL (70-110)
[2018-10-22 20:16] VITALS: BP 110/68
[2018-10-22] MEDS ORDERED: METHOCARBAMOL 500 MG TABLET PO ONE (20:45)
[2018-10-22] MEDS ORDERED: KETOROLAC TROMETHAMINE 10 MG TABLET PO ONE (20:45)
== END 2018-10-22 21:06 | disposition home or self-care (01) ==
LOC: EMS 18:21
DX: S13.4XXA Sprain of ligaments of cervical spine, initial encounter (principal); S20.221A Contusion of right back wall of thorax, initial encounter; G44.209 Tension-type headache, unspecified, not intractable; I10 Essential (primary) hypertension; E78.00 Pure hypercholesterolemia, unspecified; E11.9 Type 2 diabetes mellitus without complications; Z88.8 Allergy status to other drugs, medicaments and biological substances; Z79.4 Long term (current) use of insulin; Z79.82 Long term (current) use of aspirin; V49.40XA Driver injured in collision with unspecified motor vehicles in traffic accident, initial encounter; Y93.89 Activity, other specified; Y92.89 Other specified places as the place of occurrence of the external cause; Y99.8 Other external cause status

== ENCOUNTER 2019-03-21 11:04 | Emergency (ER) | payer OTHER ==
[~2019-03-21] VITALS: Ht 175.3 cm; Wt 118.2 kg
[~2019-03-21 11:04] MED LIST changes: -LEVO250 PO; -VANC1.5P21 IVPB
[2019-03-21 11:20] LABS: GLUCOSE,POINT OF CARE 270 MG/DL (70-110)
[2019-03-21 13:03] VITALS: BP 136/84
== END 2019-03-21 14:10 | disposition home or self-care (01) ==
LOC: EMS 11:06
DX: L08.9 Local infection of the skin and subcutaneous tissue, unspecified (principal); M79.674 Pain in right toe(s); M79.89 Other specified soft tissue disorders; E11.9 Type 2 diabetes mellitus without complications; E78.00 Pure hypercholesterolemia, unspecified; I10 Essential (primary) hypertension; Z79.899 Other long term (current) drug therapy; Z88.8 Allergy status to other drugs, medicaments and biological substances; Z79.4 Long term (current) use of insulin